=== PATIENT | male | born 1985 | race Asian ===

== ENCOUNTER 2018-10-01 14:18 | Inpatient (IN) | payer MEDICAID, OTHER ==
[~2018-10-01] VITALS: Ht 175.3 cm; Wt 93.1 kg
[~2018-10-01 14:18] MED LIST: NAPR-1024 PO
[2018-10-01 15:15] LABS: BASOPHILS % (AUTO) 0.8 % (0.0-2.0); HEMATOCRIT 54.1 % (41-53); HEMOGLOBIN 18.5 g/dL (13.5-17.5); LYMPHOCYTES # (AUTO) 1.6 K/uL (1.0-4.8); LYMPHOCYTES % (AUTO) 20.8 % (22.0-44.0); MEAN CORPUSCULAR HEMOGLOBIN 29.2 pg (26.0-34.0); MEAN CORPUSCULAR HGB CONC 34.1 G/dL (31.0-37.0); MEAN CORPUSCULAR VOLUME 86 fL (80-100); MONOCYTES # (AUTO) 0.6 K/uL (0.1-1.0); NEUTROPHILS # (AUTO) 5.3 K/uL (1.8-7.7); NEUTROPHILS % (AUTO) 68.4 % (40.0-70.0); PLATELET COUNT (AUTO) 338 K/uL (150-450); RED BLOOD CELL COUNT(AUTO) 6.31 MIL/uL (4.50-5.90); RED CELL DISTRIBUTION WIDTH 13.1 % (11.5-14.5)
[2018-10-01 16:02] LABS: ANION GAP 14 mmol/L (8-16); CALCIUM, TOTAL 9.8 mg/dL (8.8-10.5); CARBON DIOXIDE 24 mmol/L (22-29); CHLORIDE 104 mmol/L (98-107); CREATININE 1.21 mg/dL (0.60-1.30); GLOMERULAR FILTR. RATE CALC > 60 mL/min (>60); GLUCOSE,RANDOM 92 mg/dL (70-110); SODIUM SERUM 142 mmol/L (136-145); UREA NITROGEN, BLOOD 13 mg/dL (7-18)
[2018-10-01 16:10] LABS: ALANINE AMINOTRANSFERASE 35 U/L (12-78); ALBUMIN 4.7 g/dL (3.4-5.0); ALKALINE PHOSPHATASE 49 U/L (46-116); ASPARTATE AMINOTRANSFERASE 31 U/L (15-37); BILIRUBIN,TOTAL 0.9 mg/dL (0.1-1.0); TOTAL PROTEIN, SERUM 8.4 g/dL (6.4-8.2)
[2018-10-01] MEDS ORDERED: LOPERAMIDE HCL 2 MG CAPSULE PO PRN (16:15)
[2018-10-01] MEDS ORDERED: MAG HYDROX/AL HYDROX/SIMETH ES 30 ML SUSPENSION UDCUP PO PRN (16:15)
[2018-10-01] MEDS ORDERED: TUBERCULIN, PURIFIED PROTEIN DERIVATIVE 5 TU/0.1 ML SYRINGE ID ONE (16:15)
[2018-10-01] MEDS ORDERED: PROMETHAZINE HCL 25 MG TABLET PO PRN (16:15)
[2018-10-01] MEDS ORDERED: ACETAMINOPHEN 325 MG TABLET PO PRN (16:15)
[2018-10-01] MEDS ORDERED: MAGNESIUM HYDROXIDE SUSPENSION 30 ML UDCUP PO PRN (16:15)
[2018-10-01] MEDS ORDERED: HydrOXYzine PAMOATE 50 MG CAPSULE PO PRN (16:15)
[2018-10-01] MEDS ORDERED: GuaiFENesin/D-METHORPHAN [SUGAR-FREE] 200-20MG/10 ML SYRUP UDCUP PO PRN (16:15)
[2018-10-01 17:31] LABS: AMPHET/METH SCREEN,URINE NEGATIVE (NEGATIVE); BARBITURATE SCREEN, URINE NEGATIVE (NEGATIVE); BENZODIAZEPINES SCREEN,URINE NEGATIVE (NEGATIVE); CANNABINOID SCREEN,URINE POSITIVE (NEGATIVE); COCAINE SCREEN,URINE NEGATIVE (NEGATIVE); METHADONE SCREEN, URINE NEGATIVE (NEGATIVE); OPIATE SCREEN,URINE NEGATIVE (NEGATIVE)
[2018-10-01 17:34] LABS: PHENCYCLIDINE SCREEN,URINE NEGATIVE (NEGATIVE)
[2018-10-01] MEDS: OLANZapine 5 MG RAPDIS TABLET PO SCH (22:12)
[2018-10-01] MEDS: THIAMINE HCL 100 MG TABLET PO SCH (22:12)
[2018-10-02] MEDS: MULTIVITAMINS WITH MINERALS, THERAPEUTIC TABLET PO SCH (08:19)
[2018-10-02] MEDS: FOLIC ACID 1 MG TABLET PO SCH (08:20)
[2018-10-02] MEDS: NALTREXONE HCL 50 MG TABLET PO SCH (08:20)
[2018-10-02] MEDS: THIAMINE HCL 100 MG TABLET PO SCH ×2 (08:20→16:54)
[2018-10-02 09:11] LABS: HEMOGLOBIN A1C 5.3 % (4.5-6.2)
[2018-10-02 09:23] LABS: CHOL/HDL RATIO 3.3 (4.2-7.3); FREE T4 (FREE THYROXINE) 1.24 ng/dL (0.76-1.46); THYROID STIMULATING HORMONE 1.64 uIU/mL (0.36-3.74)
[2018-10-02 16:05] VITALS: BP 128/82
[2018-10-02] MEDS: LORazepam 1 MG TABLET PO PRN (16:55)
[2018-10-02] MEDS: ZOLPIDEM TARTRATE 10 MG TABLET PO PRN (21:17)
[2018-10-02] MEDS: OLANZapine 5 MG RAPDIS TABLET PO SCH (21:17)
[2018-10-03] MEDS: MULTIVITAMINS WITH MINERALS, THERAPEUTIC TABLET PO SCH (09:41)
[2018-10-03] MEDS: THIAMINE HCL 100 MG TABLET PO SCH ×2 (09:41→17:07)
[2018-10-03] MEDS: LORazepam 1 MG TABLET PO PRN ×2 (09:41→20:50)
[2018-10-03] MEDS: NALTREXONE HCL 50 MG TABLET PO SCH (09:41)
[2018-10-03] MEDS: FOLIC ACID 1 MG TABLET PO SCH (09:41)
[2018-10-03] MEDS: NICOTINE 14 MG/24 HOUR PATCH TD SCH (09:46)
[2018-10-03] MEDS ORDERED: ONDANSETRON HCL 4 MG TABLET PO PRN (12:30)
[2018-10-03] MEDS ORDERED: OLAN10TA22 PO (13:56)
[2018-10-03] MEDS ORDERED: NALT50TA PO (13:56)
[2018-10-03 16:00] VITALS: BP 141/83
[2018-10-03] MEDS ORDERED: OLANZapine 10 MG RAPDIS TABLET PO SCH (21:00)
[2018-10-03] MEDS: ZOLPIDEM TARTRATE 10 MG TABLET PO PRN (21:59)
[2018-10-04] MEDS: FOLIC ACID 1 MG TABLET PO SCH (08:43)
[2018-10-04] MEDS: NICOTINE 14 MG/24 HOUR PATCH TD SCH (08:43)
[2018-10-04] MEDS: MULTIVITAMINS WITH MINERALS, THERAPEUTIC TABLET PO SCH (08:43)
[2018-10-04] MEDS: NALTREXONE HCL 50 MG TABLET PO SCH (08:43)
[2018-10-04] MEDS: THIAMINE HCL 100 MG TABLET PO SCH (08:44)
[2018-10-04 09:23] VITALS: BP 143/85
== END 2018-10-04 13:45 | disposition home or self-care (01) | DRG 750 ==
LOC: EMS 14:22 → B3A 10-02 13:42
PROVIDERS: ADMIT Psychiatry & Neurology Psychiatry; ATTEND Psychiatry & Neurology Psychiatry
DX: F25.9 Schizoaffective disorder, unspecified (principal); R45.851 Suicidal ideations; D75.1 Secondary polycythemia; F12.90 Cannabis use, unspecified, uncomplicated; D72.829 Elevated white blood cell count, unspecified; F32.9 Major depressive disorder, single episode, unspecified; Z65.3 Problems related to other legal circumstances; Z68.31 Body mass index [BMI] 31.0-31.9, adult; Z72.0 Tobacco use; Z91.14 Patient's other noncompliance with medication regimen
CPT/HCPCS: 83036; 84439; 84443; 86592; G0480; Q0162